=== PATIENT | male | born 1995 | race American Indian/Alaskan Native ===

== ENCOUNTER 2016-10-30 00:06 | Emergency (ER) | payer MEDICAID ==
[2016-10-30 00:27] VITALS: RESP 16
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
[2016-10-30 04:34] VITALS: BP 97/62; PULSE 54; TEMP 97.7; O2SAT 99
--- NOTE | 2016-10-30 08:28 | RAD ---
PROCEDURE: Right Foot Radiographs. HISTORY: injury/ swelling COMPARISON: None. FINDINGS: BONES: Anomalous development is suggested assessment of the tarsal bones and tarsal metatarsal relationships is difficult to assess. The 1st metatarsal appears abnormally short and the medial cuneiform appears abnormally large. The media cuneiform has is suggested bone island. The 2nd 3rd 4th and 5th metatarsal lines also appear disproportionately short relative to the phalanges. 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 OTHER FINDINGS: None. IMPRESSION: Altered anatomy consistent with anomalous development.Clinical correlation with any pertinent medical history are in a known syndromes is recommended. No fractures appreciated. Tarsal- metatarsal overall alignment somewhat problematic in assessing given the anomalous development. Recommend comparison with any outside studies.
== END 2016-10-30 04:40 | disposition home or self-care (01) ==
LOC: C.ER 00:06
DX: S90.31XA Contusion of right foot, initial encounter (principal); X58.XXXA Exposure to other specified factors, initial encounter; Y93.61 Activity, american tackle football

== ENCOUNTER 2017-07-28 23:56 | Emergency (ER) | payer MEDICAID, OTHER ==
[2017-07-29 00:07] VITALS: BP 115/71; PULSE 85; RESP 20; TEMP 98; O2SAT 99
[2017-07-29] MEDS ORDERED: Tetanus/Diphtheria Toxoids 0.5 ml Syringe IM ONE ×2 (00:15→00:20)
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
== END 2017-07-29 01:09 | disposition home or self-care (01) ==
LOC: C.ER 23:56
DX: S02.2XXA Fracture of nasal bones, initial encounter for closed fracture (principal); S41.112A Laceration without foreign body of left upper arm, initial encounter; X99.1XXA Assault by knife, initial encounter; Z23 Encounter for immunization